=== PATIENT | female | born 1990 | race Caucasian/White ===

== ENCOUNTER 2020-07-04 08:49 | Emergency (ER) | payer BC, OTHER, SELFPAY ==
[2020-07-04 09:03] VITALS: BP 162/86; PULSE 67; RESP 16; TEMP 36.9; O2SAT 97
[2020-07-04 09:06] VITALS: BMI 41.9
--- NOTE | 2020-07-04 09:13 | DI.US.S_ITS ---
PROCEDURE: US PELVIC COMPLETE INDICATIONS: HEAVY BLEEDING AND POLYCYSTIC OVARIAN SYNDROME TECHNIQUE: Real-time scanning was performed of the pelvic organs, with image documentation. Additional endovaginal scanning was necessary due to incomplete visualization of the adnexal and endometrial structures by transabdominal scanning. COMPARISON: None. FINDINGS: Transabdominal scanning: Limited scanning through the kidneys shows no hydronephrosis. No pathologic free abdominal or pelvic fluid. Endovaginal scanning: Uterus: Uterus is normal in size at 7.3 x 3.9 x 4 cm. The endometrium measures 13 mm in combined thickness. Incidental note is made of nabothian cysts. Ovaries: The right ovary measures 3.7 x 3 x 2.1 cm. The left ovary measures 3.6 x 2.6 x 2.2 cm. The ovaries have a normal sonographic appearance. On the left, there is an anechoic cyst with a nonvascular septation that measures 7 x 5.2 x 4.8 cm. Normal appearing arterial waveforms are confirmed to each ovary. IMPRESSION: 7 cm left adnexal cyst, with a nonvascular septation. At clinical discretion, a followup pelvic ultrasound is suggested in 6 weeks to assure resolution/ improvement. Negative for ovarian torsion. Dictated by: Zheng Huber M.D. on 07/04/2020 at 9:16 Approved by: Zheng Huber M.D. on 07/04/2020 at 9:20
--- NOTE | 2020-07-04 09:18 | ED.FEMALEGU ---
HPI - Female Genitourinary General Chief complaint: Vaginal Bleeding Stated complaint: severe menstral cramps/bleeding Time Seen by Provider: 07/04/20 09:07 Source: patient Mode of arrival: Ambulatory Limitations: no limitations History of Present Illness HPI Narrative: Patient is a 29-year-old female with history of polycystic ovarian disease and pulmonary embolism presenting with heavy vaginal bleeding. She says she has irregular periods due to PCOS they are currently trying to get however she has not yet been . She started having heavy bleeding about 3:00 a.m. this morning going through a super pad and tampon every hour. She is also having severe abdominal cramping. She is followed closely with OBGYN she has had multiple studies done. In May she was on Provera but she said she bled through it but was only taking it 1 to 2 times a day she had a D&C at that time to stop the bleeding. She feels slightly dizzy and lightheaded. MD Complaint: vaginal bleeding Review of Systems Review of Systems Narrative: GENERAL: Denies chills, fatigue, malaise, fever, sweats, travel HEENT: Denies sinus pain, ear pain, sore throat, difficulty swallowing, neck pain RESPIRATORY: Denies dyspnea, cough, wheezing, hemoptysis, sputum. CARDIOVASCULAR: Denies chest pain, palpitations, orthopnea, edema GASTROINTESTINAL: Denies nausea, vomiting, abdominal pain, diarrhea, constipation, melena. : Denies dysuria, frequency, incontinence, hematuria, urinary retention, flank pain. SMALL ELECTRIC ENGINE TECHNICIAN: See HPI MUSCULOSKELETAL: Denies weakness, joint pain, or bony pain SKIN: No rash, no erythema, no pruritus NEUROLOGIC: Denies weakness, dizziness, headache, numbness, change in speech, confusion PSYCHIATRIC: No concerning psychosocial issues. 12 point review of systems is negative except for those stated above and HPI Patient History Medical History PCOS (polycystic ovarian syndrome) Pulmonary embolism Exam Initial Vital Signs Initial Vital Signs: Vital Signs Temperature 98.4 F 07/04/20 09:03 Pulse Rate 67 07/04/20 09:03 Respiratory Rate 16 07/04/20 09:03 Blood Pressure 162/86 H 07/04/20 09:03 Pulse Oximetry 97 07/04/20 09:03 GENERAL: Overweight well-appearing female and in no acute distress. HEENT: Head atraumatic,EOMI, pupils reactive, face symmetric, moist mucous membranes CARDIOVASCULAR: Regular rate and rhythm without murmurs, rubs or gallops. RESPIRATORY: Breath sounds equal bilaterally, no wheezes rales or rhonchi. ABDOMEN: Soft, mild suprapubic pain no guarding or rebound EXTREMITIES: Normal range of motion, no clubbing or edema. Neurovascularly intact NEUROLOGICAL: Alert and oriented x4.Normal gait and speech. SKIN: Warm, dry, no laceration, no petechiae, no rashes or lesions. Course Orders Ordered: ED Orders 07/04/20 09:09 Basic Metabolic Panel Stat Complete Blood Count AUTO DIFF Stat Type and Screen Stat 07/04/20 09:13 US pelvic complete Stat Discontinued Medications Ketorolac Tromethamine (Ketorolac 60 Mg/2 Ml Vial) 30 mg IV NOW ONE Stop: 07/04/20 09:14 Vital Signs Vital signs: Vital Signs - 8 hr 07/04/20 09:03 Temperature 98.4 F Pulse Rate 67 Respiratory Rate 16 Blood Pressure 162/86 H Pulse Oximetry 97
[2020-07-04 09:34] LABS: Add Manual Diff / Slide Review NO; Basophils Absolute Auto 100 /uL (0-100); Basophils Percent Auto 0.9 % (0-2); Eosinophils Absolute Auto 400 /uL (0-450); Eosinophils Percent Auto 4.4 % (2-4); Hematocrit 38.4 % (36-46); Hemoglobin 12.4 g/dL (12.0-16.0); Lymphocytes Absolute Auto 2600 /uL (1100-4500); Lymphocytes Percent Auto 30.6 % (25-40); Mean Corpuscular HGB Conc 32.2 % (30-36); Mean Corpuscular Hemoglobin 28.5 PG (26-34); Mean Corpuscular Volume 88.5 fL (80-100); Monocytes Absolute Auto 500 /uL (0-900); Monocytes Percent Auto 5.3 % (3-14); Neutrophils Absolute Auto 5000 /uL (1500-7000); Neutrophils Percent Auto 58.8 % (50-75); Platelet Count 283 X10^3/uL (150-400); Red Blood Cell Count 4.35 X10^6/uL (4.0-5.2); Red Cell Distribution Width 14.2 % (11.6-14.8); White Blood Cell Count 8.6 X10^3/uL (4.5-11.0)
[2020-07-04 09:38] LABS: WBC Urine None Seen (0-5/HPF)
[2020-07-04 09:43] LABS: BUN Creatinine Ratio 30.2 (6-22); Blood Urea Nitrogen 16 mg/dL (7-17); Calcium 9.2 mg/dL (8.4-10.2); Carbon Dioxide 27 mmol/L (22-32); Chloride 109 mmol/L (98-107); Estimated Glomerular Filt Rate > 60.0 mL/min (>60); Glucose 91 mg/dL (70-100); HEMOLYSIS < 15 (0-50); Potassium 4.1 mmol/L (3.4-5.1); Sodium 140 mmol/L (137-145)
[2020-07-04 09:53] LABS: Bacteria Urine Few (2-10); Culture Indicated Urine Cult Not Indicated; Mucus Urine 2+ (Negative); RBC Urine 10-30/HPF (0-5/HPF); Squamous Epithelial Cell Urine 5-10 /HPF (0-5/HPF)
[2020-07-04] MEDS: KETOROLAC 60 MG/2 ML VIAL 30 MG IV (10:04)
--- NOTE | 2020-07-04 10:15 | ED_ITS ---
HPI - Female Genitourinary General Chief complaint: Vaginal Bleeding Stated complaint: severe menstral cramps/bleeding Time Seen by Provider: 07/04/20 09:07 Source: patient Mode of arrival: Ambulatory Limitations: no limitations History of Present Illness HPI Narrative: Patient is a 29-year-old female who has history of PCOS and pulmonary embolism presenting today with heavy vaginal bleeding. She states that her menstrual cycles are irregular. She started having heavy bleeding around 3:00 a.m. she is going through a super pad and tampon every hour. She said she previously had a pulmonary embolism secondary to control. She is followed closely by OBGYN they are currently trying to get and is supposed to see a fertility doctor soon. She had some bleeding in May that required a D&C. She said she had a continuation of vaginal bleeding for 4 weeks straight and it did not stop with Provera which she took 1 or 2 times a day. Which is what led to her to a D&C MD Complaint: vaginal bleeding Related Data Previous Rx's Medication Instructions Recorded medroxyprogesterone [Provera] 10 mg PO DAILY #90 tab 07/04/20 Review of Systems Review of Systems Narrative: GENERAL: Denies chills, fatigue, malaise, fever, sweats, travel HEENT: Denies sinus pain, ear pain, sore throat, difficulty swallowing, neck pain RESPIRATORY: Denies dyspnea, cough, wheezing, hemoptysis, sputum. CARDIOVASCULAR: Denies chest pain, palpitations, orthopnea, edema GASTROINTESTINAL: Denies nausea, vomiting, abdominal pain, diarrhea, constipation, melena. : Denies dysuria, frequency, incontinence, hematuria, urinary retention, flank pain. [employer] employee: SEE HPI MUSCULOSKELETAL: Denies weakness, joint pain, or bony pain SKIN: No rash, no erythema, no pruritus NEUROLOGIC: Denies weakness, dizziness, headache, numbness, change in speech, confusion PSYCHIATRIC: No concerning psychosocial issues. 12 point review of systems is negative except for those stated above and HPI Patient History Medical History PCOS (polycystic ovarian syndrome) Pulmonary embolism Exam Initial Vital Signs Initial Vital Signs: Vital Signs Temperature 98.4 F 07/04/20 09:03 Pulse Rate 67 07/04/20 09:03 Respiratory Rate 16 07/04/20 09:03 Blood Pressure 162/86 H 07/04/20 09:03 Pulse Oximetry 97 07/04/20 09:03 GENERAL: Well-appearing, well-nourished and in no acute distress. HEENT: Head atraumatic,EOMI, pupils reactive, face symmetric, moist mucous membranes CARDIOVASCULAR: Regular rate and rhythm without murmurs, rubs or gallops. RESPIRATORY: Breath sounds equal bilaterally, no wheezes rales or rhonchi. ABDOMEN: Soft, nontender. Normoactive bowel sounds all 4 quadrants. No gu arding or rebound. HYDRAULIC CONTROLS TECHNICIAN: Gross blood in vaginal canal os is open no abnormalities EXTREMITIES: Normal range of motion, no clubbing or edema. Neurovascularly intact NEUROLOGICAL: Alert and oriented x4.Normal gait and speech. SKIN: Warm, dry, no laceration, no petechiae, no rashes or lesions. Course Orders Ordered: Discontinued Medications Ketorolac Tromethamine (Ketorolac 60 Mg/2 Ml Vial) 30 mg IV NOW ONE Stop: 07/04/20 09:14 Last Admin: 07/04/20 10:04 Dose: 30 mg Documented by: CARLY Medroxyprogesterone Acetate (Medroxyprogesterone Acetate 10 Mg Tablet) 20 mg PO NOW ONE Stop: 07/04/20 11:02 Last Admin: 07/04/20 11:15 Dose: 20 mg Documented by: KEVIN Vital Signs Vital signs: Vital Signs - 8 hr 07/04/20 11:55 Pulse Rate 75 Respiratory Rate 16 Blood Pressure 147/86 H Pulse Oximetry 99 MDM - Female Genitourinary Lab Data Attestation: I reviewed the patient's lab results. Result diagrams: 07/04/20 09:26 07/04/20 09:26 Labs: Lab Results 07/04/20 07/04/20 07/04/20 Range/Units 09:16 09:26 09:26 WBC 8.6 (4.5-11.0) X10^3/uL RBC 4.35 (4.0-5.2) X10^6/uL Hgb 12.4 (12.0-16.0) g/dL Hct 38.4 (36-46) % MCV 88.5 (80-100) fL MCH 28.5 (26-34) PG MCHC 32.2 (30-36) % RDW 14.2 (11.6-14.8) % Plt Count 283 (150-400) X10^3/uL Neut % (Auto) 58.8 (50-75) % Lymph % (Auto) 30.6 (25-40) % [place] % (Auto) 5.3 (3-14) % Eos % (Auto) 4.4 H (2-4) % Baso % (Auto) 0.9 (0-2) % Neut # (Auto) 5000 (0502-2678) /uL Lymph # (Auto) 2600 (7609-5804) /uL [place] # (Auto) 500 (0-900) /uL Eos # (Auto) 400 (0-450) /uL Baso # (Auto) 100 (0-100) /uL Sodium 140 (137-145) mmol/L Potassium 4.1 (3.4-5.1) mmol/L Chloride 109 H (98-107) mmol/L Carbon Dioxide 27 (22-32) mmol/L BUN 16 (7-17) mg/dL Creatinine 0.53 (0.52-1.04) mg/dL Estimated GFR > 60.0 (>60) mL/min BUN/Creatinine Ratio 30.2 H (6-22) Glucose 91 (70-100) mg/dL Calcium 9.2 (8.4-10.2) mg/dL Urine RBC 10-30/hpf H (0-5/HPF) Urine WBC None seen (0-5/HPF) Ur Squamous Epith Cells 5-10 /hpf H (0-5/HPF) Urine Bacteria Few (2-10) H (None) Urine Mucus 2+ H (Negative) Ur Culture Indicated? Cult not indicated Blood Type Antibody Screen 07/04/20 Range/Units 09:26 WBC (4.5-11.0) X10^3/uL RBC (4.0-5.2) X10^6/uL Hgb (12.0-16.0) g/dL Hct (36-46) % MCV (80-100) fL MCH (26-34) PG MCHC (30-36) % RDW (11.6-14.8) % Plt Count (150-400) X10^3/uL Neut % (Auto) (50-75) % Lymph % (Auto) (25-40) % [place] % (Auto) (3-14) % Eos % (Auto) (2-4) % Baso % (Auto) (0-2) % Neut # (Auto) (0297-0441) /uL Lymph # (Auto) (6309-6558) /uL [place] # (Auto) (0-900) /uL Eos # (Auto) (0-450) /uL Baso # (Auto) (0-100) /uL Sodium (137-145) mmol/L Potassium (3.4-5.1) mmol/L Chloride (98-107) mmol/L Carbon Dioxide (22-32) mmol/L BUN (7-17) mg/dL Creatinine (0.52-1.04) mg/dL Estimated GFR (>60) mL/min BUN/Creatinine Ratio (6-22) Glucose (70-100) mg/dL Calcium (8.4-10.2) mg/dL Urine RBC (0-5/HPF) Urine WBC (0-5/HPF) Ur Squamous Epith Cells (0-5/HPF) Urine Bacteria (None) Urine Mucus (Negative) Ur Culture Indicated? Blood Type A Positive Antibody Screen Negative Point of Care Testing Test Results Negative Urine Dip Bedside Urine Glucose Negative Bedside Urine Bilirubin - Negative Bedside Urine Ketone - Negative Urine Specific [place] 1.025 Bedside Urine Occult Blood +++ Bedside Urine pH 6.0 Bedside Urine Urobilinogen - Negative Bedside Urine Nitrite - Negative Bedside Urine Leukocytes - Negative Esterase Imaging Data US - HYDRAULIC CONTROLS TECHNICIAN: Radiologist's Impression: PROCEDURE: US PELVIC COMPLETE INDICATIONS: HEAVY BLEEDING AND POLYCYSTIC OVARIAN SYNDROME TECHNIQUE: Real-time scanning was performed of the pelvic organs, with image documentation. Additional endovaginal scanning was necessary due to incomplete visualization of the adnexal and endometrial structures by transabdominal scanning. COMPARISON: None. FINDINGS: Transabdominal scanning: Limited scanning through the kidneys shows no hydronephrosis. No pathologic free abdominal or pelvic fluid. Endovaginal scanning: Uterus: Uterus is normal in size at 7.3 x 3.9 x 4 cm. The endometrium measures 13 mm in combined thickness. Incidental note is made of nabothian cysts. Ovaries: The right ovary measures 3.7 x 3 x 2.1 cm. The left ovary measures 3.6 x 2.6 x 2.2 cm. The ovaries have a normal sonographic appearance. On the left, there is an anechoic cyst with a nonvascular septation that measures 7 x 5.2 x 4.8 cm. Normal appearing arterial waveforms are confirmed to each ovary. IMPRESSION: 7 cm left adnexal cyst, with a nonvascular septation. At clinical discretion, a followup pelvic ultrasound is suggested in 6 weeks to assure resolution/ improvement. Negative for ovarian torsion. Dictated by: Zheng Huber M.D. on 07/04/2020 at 9:16 MDM Narrative Medical decision making narrative: Patient is hemodynamically stable she does have quite a bit of blood on exam. She is closely followed by [employer] employee. At this time recommend Provera to slow vaginal bleeding she was previously on it. Discharge Plan Departure Patient Disposition: Home Clinical Impression: Vaginal bleeding Instructions: DI for Vaginal Bleeding Activity Restrictions/Additional Instructions: *You have been diagnosed with vaginal *What to do: Please be sure to follow-up with your [employer] employee as scheduled. Your blee ding should taper off and slow significantly today *Continue to take medications as directed Medroxyprogesterone 2 tablets every 2 hours until bleeding stops or significantly slows down. Then take 2 tablets every 4 hours for 48 hours. Then take 2 tablets every 6 hours for 48 hours. Then take 2 tablets every 8 hours for 48 hours. Then take 2 tablets every 12 hours for 48 hours. Then take 2 tab lets a day for 7 days *Follow up with your primary care provider in 2-3 days Call your water[employer] employee today to schedule follow-up appointment *Return to ER if you should have no significant slowing of bleeding continuation of more than 2 super pad or tampons an hour, dizziness lightheadedness, passing out or any new, worsening or concerning symptoms Prescriptions: New medroxyprogesterone [Provera] 10 mg tablet 10 mg PO DAILY Qty: 90 RF: 0 Referrals: Rickie Lowe MD [Primary Care Provider] -
[2020-07-04] MEDS: MEDROXYPROGESTERONE ACETATE 10 MG TABLET 20 MG PO (11:15)
[2020-07-04 11:55] VITALS: BP 147/86; PULSE 75; RESP 16; O2SAT 99
== END 2020-07-04 12:11 | disposition home or self-care (01) ==
PROVIDERS: Emergency Provider Emergency Medicine; PCP Family Medicine
DX: N92.0 Excessive and frequent menstruation with regular cycle (principal); E28.2 Polycystic ovarian syndrome; Z86.711 Personal history of pulmonary embolism
CPT/HCPCS: 29705; 36415; 76830; 76856; 80048; 81003; 81015; 81025; 85025; 86850; 86900; 86901; 96374; 99284; J1885

== ENCOUNTER 2020-10-28 17:49 | Emergency (ER) | payer OTHER, SELFPAY ==
[2020-10-28] VITALS (10 sets, daily range): BP systolic 140–145; BP diastolic 74–81; PULSE 64–80; RESP 14–21; TEMP 36.4; O2SAT 99–100; BMI 39.5
--- NOTE | 2020-10-28 18:00 | DI.RAD.S_ITS ---
PROCEDURE: XR CHEST 1V INDICATIONS: chest pain TECHNIQUE: One view of the chest was acquired. COMPARISON: None. FINDINGS: Surgical changes and devices: Thoracolumbar fixation rods are present. Lungs and pleura: Lungs are clear. No pleural effusions or pneumothorax. Mediastinum: Mediastinal contours appear normal. Heart size is minimally prominent. Bones and chest wall: No suspicious bony lesions. Overlying soft tissues appear unremarkable. IMPRESSION: No acute pulmonary process. Dictated by: Tatiana Villegas M.D. on 10/28/2020 at 19:20 Approved by: Tatiana Villegas M.D. on 10/28/2020 at 19:21
--- NOTE | 2020-10-28 18:10 | DI.US.S_ITS ---
PROCEDURE: US PERIPH VENOUS LOW EXTREM RT INDICATIONS: Lower extremity pain with history of DVT. TECHNIQUE: Real-time imaging, as well as color and pulse Doppler interrogation, were performed of the lower extremity deep veins from the inguinal ligament to the popliteal fossa. COMPARISON: None. FINDINGS: The common femoral, femoral and popliteal veins are normally compressible, and free of intraluminal thrombus. Color and pulse Doppler demonstrate normal phasic intraluminal flow. There is normal augmentation response to distal compression maneuver. IMPRESSION: No deep venous thrombosis. Dictated by: Tatiana Villegas M.D. on 10/28/2020 at 19:21 Approved by: Tatiana Villegas M.D. on 10/28/2020 at 19:21
[2020-10-28 18:31] LABS: Add Manual Diff / Slide Review NO; Basophils Absolute Auto 200 /uL (0-100); Basophils Percent Auto 1.3 % (0-2); Eosinophils Absolute Auto 300 /uL (0-450); Eosinophils Percent Auto 2.2 % (2-4); Hematocrit 38.4 % (36-46); Hemoglobin 12.4 g/dL (12.0-16.0); Lymphocytes Absolute Auto 3900 /uL (1100-4500); Lymphocytes Percent Auto 32.2 % (25-40); Mean Corpuscular HGB Conc 32.4 % (30-36); Mean Corpuscular Hemoglobin 28.4 PG (26-34); Mean Corpuscular Volume 87.7 fL (80-100); Monocytes Absolute Auto 600 /uL (0-900); Monocytes Percent Auto 4.9 % (3-14); Neutrophils Absolute Auto 7200 /uL (1500-7000); Neutrophils Percent Auto 59.4 % (50-75); Platelet Count 307 X10^3/uL (150-400); Red Blood Cell Count 4.38 X10^6/uL (4.0-5.2); White Blood Cell Count 12.1 X10^3/uL (4.5-11.0)
[2020-10-28 18:39] LABS: INR 1.1 (0.9-1.3); Prothrombin Time 12.9 SECONDS (10.1-12.7)
[2020-10-28 18:42] LABS: PTT Partial Thromboplastin Tim 33 SECONDS (26.4-36.2)
[2020-10-28 18:46] LABS: Alanine Aminotransferase 30 IU/L (<35); Albumin 4.5 g/dL (3.5-5.0); Albumin Globulin Ratio 1.3 (1.0-2.8); Alkaline Phosphatase 59 U/L (38-126); Aspartate Aminotransferase 26 IU/L (14-36); Bilirubin Total 0.1 mg/dL (0.2-1.3); Blood Urea Nitrogen 20 mg/dL (7-17); Carbon Dioxide 28 mmol/L (22-32); Chloride 103 mmol/L (98-107); Creatine Kinase 204 U/L (30-135); Estimated Glomerular Filt Rate > 60.0 mL/min (>60); Globulin 3.5 g/dL (1.7-4.1); Glucose 85 mg/dL (70-100); HEMOLYSIS < 15 (0-50); Lipase 174 U/L (23-300); Potassium 3.6 mmol/L (3.4-5.1); Sodium 140 mmol/L (137-145)
[2020-10-28 18:57] LABS: Troponin I < 0.012 ng/mL (0.01-0.034)
[2020-10-28 19:01] LABS: CKMB % Relative Index 0.5 % (1.5-5.0); Creatine Kinase MB 0.92 ng/mL (<2.37)
--- NOTE | 2020-10-28 21:43 | ED_ITS ---
HPI - Chest Pain General Chief Complaint: Chest Pain Stated Complaint: RIGHT CALF PAIN SOB DIZZY CHEST HURTS Time Seen by Provider: 10/28/20 21:33 Source: patient Mode of arrival: Ambulatory Limitations: no limitations History of Present Illness HPI narrative: Patient is a 30-year-old female here for evaluation of pain in her right calf. Also complains of some shortness of breath and dizziness and intermittent chest discomfort. She has had a right lower extremity DVT and a pulmonary embolism in the past. She is not currently on any anticoagulation. She stated that the initial thought was that the DVT was because of the control that she was taking. She does feel like this is somewhat like those [place]or[place] or events. Has not tried anything for the symptoms prior to arrival Related Data Previous Rx's Medication Instructions Recorded medroxyprogesterone [Provera] 10 mg PO DAILY #90 tab 07/04/20 Allergies Allergy/AdvReac Type Severity Reaction Status Date / Time Penicillins Allergy Verified 10/28/20 17:55 Review of Systems Constitutional Constitutional: Denies fever(s) and Denies headache(s) ENT Ears, Nose, Mouth, and Throat: Reports dizziness and Denies headache(s) Cardiovascular Cardiovascular: Reports chest pain and Reports dyspnea Respiratory Respiratory: Reports dyspnea Gastrointestinal Gastrointestinal: Denies abdominal pain, Denies nausea and Denies vomiting Musculoskeletal Comments: Right lower extremity swelling Integumentary/Breasts Skin/Breast: Denies rash Neurologic Neurologic: Reports dizziness and Denies headache(s) Hematologic/Lymphatic On Anticoagulants: No Allergic/Immunologic Allergic/Immunologic: Denies urticaria Patient History Medical History DVT (deep venous thrombosis) PCOS (polycystic ovarian syndrome) Pulmonary embolism Social History Smoking Status: Never smoker Smoking Status: Never smoker Substance Use Type: does not use Exam Initial Vital Signs Initial Vital Signs: Vital Signs Temperature 97.6 F 10/28/20 17:55 Pulse Rate 80 10/28/20 17:55 Respiratory Rate 18 10/28/20 17:55 Blood Pressure 145/77 H 10/28/20 17:55 Pulse Oximetry 99 10/28/20 17:55 Const General: cooperative and comfortable Limitations: mental status not altered HENCA Head: normal to inspection and normocephalic Resp Effort & Inspection: normal respiratory effort Auscultation: clear to auscultation bilaterally Cardio Rate: regular rate Rhythm: regular rhythm GI Inspection: non-distended Palpation: soft Skin Lesions: no lesions Rashes: no rashes Neuro General: patient alert and patient awake Cognition: normal cognition Speech: speech normal Extrem General: capillary refill normal and edema (Right lower extremity) Psych Appearance: grossly normal and well kempt Course Orders Ordered: ED Orders 10/28/20 18:00 XR chest 1V Stat EKG-12 Lead Stat 10/28/20 18:10 US periph venous low extrem rt Stat 10/28/20 18:20 Complete Blood Count AUTO DIFF Stat Comprehensive Metabolic Panel Stat Lipase Stat Partial Thromboplastin Time Stat Prothrombin Time INR Stat Troponin & CK Cardiac Panel Stat Vital Signs Vital signs: Vital Signs - 8 hr 10/28/20 20:00 10/28/20 20:30 10/28/20 21:00 Pulse Rate 67 77 72 Respiratory Rate 21 20 15 Blood Pressure 140/74 Pulse Oximetry 100 99 100 10/28/20 21:30 Pulse Rate 72 Respiratory Rate 15 Blood Pressure Pulse Oximetry 100 MDM - Chest Pain Lab Data Attestation: I reviewed the patient's lab results. Result diagrams: 10/28/20 18:20 10/28/20 18:20 Labs: Lab Results 10/28/20 10/28/20 10/28/20 Range/Units 18:20 18:20 18:20 WBC 12.1 H (4.5-11.0) X10^3/uL RBC 4.38 (4.0-5.2) X10^6/uL Hgb 12.4 (12.0-16.0) g/dL Hct 38.4 (36-46) % MCV 87.7 (80-100) fL MCH 28.4 (26-34) PG MCHC 32.4 (30-36) % RDW 14.0 (11.6-14.8) % Plt Count 307 (150-400) X10^3/uL Neut % (Auto) 59.4 (50-75) % Lymph % (Auto) 32.2 (25-40) % [place] % (Auto) 4.9 (3-14) % Eos % (Auto) 2.2 (2-4) % Baso % (Auto) 1.3 (0-2) % Neut # (Auto) 7200 H (4274-5649) /uL Lymph # (Auto) 3900 (1487-9527) /uL [place] # (Auto) 600 (0-900) /uL Eos # (Auto) 300 (0-450) /uL Baso # (Auto) 200 H (0-100) /uL PT 12.9 H (10.1-12.7) SECONDS INR 1.1 (0.9-1.3) APTT 33 (26.4-36.2) SECONDS Sodium 140 (137-145) mmol/L Potassium 3.6 (3.4-5.1) mmol/L Chloride 103 (98-107) mmol/L Carbon Dioxide 28 (22-32) mmol/L BUN 20 H (7-17) mg/dL Creatinine 0.80 (0.52-1.04) mg/dL Estimated GFR > 60.0 (>60) mL/min BUN/Creatinine Ratio 25.0 H (6-22) Glucose 85 (70-100) mg/dL Calcium 10.0 (8.4-10.2) mg/dL Total Bilirubin 0.1 L (0.2-1.3) mg/dL AST 26 (14-36) IU/L ALT 30 (<35) IU/L Alkaline Phosphatase 59 (38-126) U/L Total Creatine Kinase 204 H (30-135) U/L CK-MB (CK-2) 0.92 (<2.37) ng/mL CK-MB (CK-2) Rel Index 0.5 L (1.5-5.0) % Troponin I < 0.012 (0.01-0.034) ng/mL Total Protein 8.0 (6.3-8.2) g/dL Albumin 4.5 (3.5-5.0) g/dL Globulin 3.5 (1.7-4.1) g/dL Albumin/Globulin Ratio 1.3 (1.0-2.8) Lipase 174 (23-300) U/L Imaging Data Chest x-ray: Radiologist's Impression: [address] [id number] ReportSigned Patient: Elsie Ritchie KMR#: [id number]: 1990Acct:[id number]/Sex: 30 / FDate of Service: 10/28/20Loc: EDAccession Number: [id number] Procedure: XR chest 1V Ordering Provider: Amada Goldstein D.O. PROCEDURE: XR CHEST 1V INDICATIONS: chest pain TECHNIQUE: One view of the chest was acquired. COMPARISON: None. FINDINGS: Surgical changes and devices: Thoracolumbar fixation rods are present. Lungs and pleura: Lungs are clear. No pleural effusions or pneumothorax. Mediastinum: Mediastinal contours appear normal. Heart size is minimally prominent. Bones and chest wall: No suspicious bony lesions. Overlying soft tissues appear unremarkable. IMPRESSION: No acute pulmonary process. Dictated by: Tatiana Villegas M.D. on 10/28/2020 at 19:20 Approved by: Tatiana Villegas M.D. on 10/28/2020 at 19:21 US - DVT: Radiologist's Impression: No DVT ECG Data Attestation: I personally reviewed and interpreted this ECG as follows: Prior ECG tracings: not available for review Interpretation: Sinus rhythm Ventricular rate is 69 Normal axis Normal QRS Normal QTC No ST T wave changes MDM Narrative Medical decision making narrative: Her chest x-ray EKG and right lower extremity ultrasound were all unremarkable. She does have a leukocytosis however there is no indication for any infection and no indication for any antibiotics. She does have swelling in her right lower extremity compared to the left. She thinks this is new. I did discuss with her the limitations of the ultrasound here in the emergency department and what it does show. Informed her that she should wear compression stockings. We also discussed keeping her leg elevated. Also discussed contacting her primary doctor for follow-up to have a repeat ultrasound. Discussed return precautions and follow-up instructions. She expressed understanding and agreement. Discharge Plan Departure Patient Disposition: Home Clinical Impression: Pain of right calf Instructions: DI for Leg Pain Activity Restrictions/Additional Instructions: I recommend that you do wear the compression stockings like we discussed. Continue all of your medications as directed. Contact your primary provider for follow-up to discuss further workup to include potentially having further ultrasounds of your right leg. Return to the emergency department for any new or worsening symptoms Prescriptions: No Action medroxyprogesterone [Provera] 10 mg tablet 10 mg PO DAILY Qty: 90 RF: 0 Referrals: Rickie Lowe MD [Primary Care Provider] - Stand Alone Forms: Work Release Note
== END 2020-10-28 21:47 | disposition home or self-care (01) ==
PROVIDERS: Emergency Medicine; Emergency Provider Emergency Medicine; PCP Family Medicine
DX: M79.661 Pain in right lower leg (principal); R07.89 Other chest pain
CPT/HCPCS: 36415; 71045; 80053; 82550; 82553; 83690; 84484; 85025; 85610; 85730; 93005; 93010; 93971; 99284